=== PATIENT | female | born 1945 | race Caucasian/White ===

== ENCOUNTER 2017-10-18 06:13 | Day surgery (SDC) | payer MEDICARE, OTHER ==
[2017-10-18] MEDS ORDERED: CYCLOPENTOLATE 1% OPHTH DROPS 2 ML ONE (06:30)
[2017-10-18] MEDS ORDERED: KETOROLAC 0.45% OPHTH DROPS ONE (06:30)
[2017-10-18] MEDS ORDERED: PROPARACAINE 0.5% OPHTH DROPS 15 ML ONE (06:30)
[2017-10-18] MEDS ORDERED: PHENYLEPHRINE 2.5% OPHTH 2 ML DROPS ONE (06:30)
[2017-10-18] MEDS ORDERED: KETOROLAC 0.45% OPHTH DROPS LEFTEYE ONE (06:40)
[2017-10-18] MEDS ORDERED: PHENYLEPHRINE 2.5% OPHTH 2 ML DROPS LEFTEYE ONE (06:40)
[2017-10-18] MEDS ORDERED: PROPARACAINE 0.5% OPHTH DROPS 15 ML LEFTEYE ONE ×2 (06:40→07:40)
[2017-10-18] MEDS ORDERED: CYCLOPENTOLATE 1% OPHTH DROPS 2 ML LEFTEYE ONE (06:40)
[2017-10-18] MEDS ORDERED: LACTATED RINGERS 500 ML IV ONE (06:44)
[2017-10-18] MEDS ORDERED: EPINEPHrine 1 MG/ML AMP ONE (07:11)
[2017-10-18] MEDS ORDERED: BRIMONIDINE 0.2% OPHTH DROPS 5 ML ONE (07:12)
[2017-10-18] MEDS ORDERED: TIMOLOL 0.5% OPHTH DROPS ONE (07:12)
[2017-10-18] MEDS ORDERED: TRIAMCIN/MOXIFLOX OPHTHALMIC 0.6 ML VIAL IO ONE (07:12)
[2017-10-18] MEDS ORDERED: BSS/LIDOCAINE/EPINEPHRINE 1 ML SYRINGE ONE (07:13)
[2017-10-18] MEDS ORDERED: VANCOMYCIN OPHTHALMI 8MG/0.8ML 8 MG/0.8 ML SYRINGE IO ONE ×2 (07:13→07:41)
[2017-10-18] MEDS ORDERED: EPINEPHrine 1 MG/ML AMP IR ONE (07:39)
[2017-10-18] MEDS ORDERED: BRIMONIDINE 0.2% OPHTH DROPS 5 ML OPTH ONE (07:39)
[2017-10-18] MEDS ORDERED: TIMOLOL 0.5% OPHTH DROPS OPTH ONE (07:40)
[2017-10-18] MEDS ORDERED: BSS/LIDOCAINE/EPINEPHRINE 1 ML SYRINGE IO ONE ×2 (07:40)
[2017-10-18] MEDS ORDERED: CHONDR SULF/HYALURONATE SYRINGE IO ONE (07:40)
[2017-10-18] MEDS ORDERED: MIDAZOLAM 2 MG/2 ML VIAL IVP ONE (07:41)
[2017-10-18 07:58] VITALS: BP 123/64
--- NOTE | 2017-10-18 10:13 | OPERATIVE REPORT ---
DATE OF SERVICE: 10/18/2017 Physician: William Cason MD PREOPERATIVE DIAGNOSIS: Visually significant cataract, left eye. This was her first cataract surgery. POSTOPERATIVE DIAGNOSIS: Visually significant cataract, left eye. This was her first cataract surgery. NAME OF PROCEDURE: Phacoemulsification with posterior chamber intraocular lens implant, left eye. SURGEON: William Cason MD ANESTHESIA: Monitored anesthesia care. COMPLICATIONS: None. OPERATIVE INDICATIONS: This is a 71-year-old woman with progressive vision loss in the left eye due to 2+ nuclear sclerotic cataract. Best corrected visual acuity was 20/ 25, with glare to 20/60 in the left eye. Indications for surgery were difficulty seeing words on a computer screen, difficulty reading, difficulty seeing words, closed caption or game scores on TV, difficulty seeing street signs, difficulty driving in low light or night, difficulty driving at night because of head lights from other vehicles, difficulty with glare or bright lights in any situation, and difficulty tracking a golf ball. She was consented at length concerning the risks and benefits of cataract surgery, after which she expressed a desire to proceed with surgery. OPERATIVE PROCEDURE: The patient was taken to the OR #3, and placed under monitored anesthesia care. A surgical timeout was conducted confirming the correct patient, correct procedure, and correct surgical site. She was given topical anesthesia, and prepped and draped in the usual sterile fashion. The eye was entered at the 6 and 3 o'clock positions. Intracameral Shugarcaine was injected into the anterior chamber, followed by Viscoat. A continuous-tear curvilinear capsulorrhexis was performed. Nucleus was hydrodissected and phacoemulsified. The cortex was evacuated using automated infusion and aspiration. Provisc was injected in the capsular bag, and a 12.0 diopter intraocular lens inserted in the bag. Approximately 0.8 mL of a mixture of triamcinolone, moxifloxacin and vancomycin was injected subconjunctivally in the superior quadrant for infection and inflammation prophylaxis. I and A was used to evacuate the viscoelastic material. The eye was inflated to physiologic pressure using balanced salt solution, and found to be watertight. The patient was taken from the operating room in good condition, given postop instructions. TD: 10/18/2017 08:02 [facility]
== END 2017-10-18 06:14 | disposition home or self-care (01) ==
LOC: SDS 06:13
PROVIDERS: ATTEND Ophthalmology
PROC: 08RK3JZ Replacement of Left Lens with Synthetic Substitute, Percutaneous Approach (ICD-10-PCS; principal; 2017-10-18 07:30)
DX: H25.12 Age-related nuclear cataract, left eye (principal); I10 Essential (primary) hypertension; E11.9 Type 2 diabetes mellitus without complications; Z87.891 Personal history of nicotine dependence; Z79.84 Long term (current) use of oral hypoglycemic drugs; Z79.899 Other long term (current) drug therapy
CPT/HCPCS: 66984; A9270; J3490; V2632

== ENCOUNTER 2017-11-08 07:11 | Day surgery (SDC) | payer MEDICARE, OTHER ==
[~2017-11-08 07:11] MED LIST: CYCLOPENTOLATE 1% OPHTH DROPS 2 ML ONE; KETOROLAC 0.45% OPHTH DROPS ONE; PHENYLEPHRINE 2.5% OPHTH 2 ML DROPS ONE; PROPARACAINE 0.5% OPHTH DROPS 15 ML ONE
[2017-11-08] MEDS ORDERED: BRIMONIDINE 0.2% OPHTH DROPS 5 ML ONE (07:14)
[2017-11-08] MEDS ORDERED: TIMOLOL 0.5% OPHTH DROPS ONE (07:15)
[2017-11-08] MEDS ORDERED: PROPARACAINE 0.5% OPHTH DROPS 15 ML ONE (07:15)
[2017-11-08] MEDS ORDERED: LACTATED RINGERS 500 ML IV ONE (07:40)
[2017-11-08] MEDS ORDERED: PROPARACAINE 0.5% OPHTH DROPS 15 ML RIGHTEYE ONE ×2 (07:45→08:35)
[2017-11-08] MEDS ORDERED: CYCLOPENTOLATE 1% OPHTH DROPS 2 ML RIGHTEYE ONE (07:45)
[2017-11-08] MEDS ORDERED: PHENYLEPHRINE 2.5% OPHTH 2 ML DROPS RIGHTEYE ONE (07:45)
[2017-11-08] MEDS ORDERED: KETOROLAC 0.45% OPHTH DROPS RIGHTEYE ONE (07:45)
--- NOTE | 2017-11-08 08:05 | ANESTHESIA ---
Pre-Anesthesia VS, & Labs - Diagnosis nuclear sclerotic cataract - Procedure Cataract extraction with intraocular lens Vital Signs: Temp Pulse Resp BP Pulse Ox 36 C L 16 122/69 97 11/08/17 07:24 11/08/17 07:24 11/08/17 07:24 11/08/17 07:24 Height 5 ft 2 in Weight (kg) 75.5 kg - NPO Last Food Intake: 233 - Is Patient ?: No Home Medications and Allergies Home Medications: Ambulatory Orders Medication Instructions Recorded Confirmed Aspirin [Adult Aspirin Regimen] 81 mg PO DAILY 10/17/17 10/17/17 Empagliflozin [Jardiance] 10 mg PO DAILY 10/17/17 10/17/17 Losartan Potassium 25 mg PO DAILY 10/17/17 10/17/17 Pravastatin Sodium [Pravachol] 20 mg PO DAILY 10/17/17 10/17/17 Sitagliptin Phos/Metformin HCl 1 each PO DAILY 10/17/17 10/17/17 [Janumet 50-1,000 mg Tablet] Allergies/Adverse Reactions: Allergies Allergy/AdvReac Type Severity Reaction Status Date / Time No Known Drug Allergies Allergy Verified 10/17/17 11:32 Anes History & Medical History - Anesthetic History Anesthesia Complications: reports: No previous complications Family history of Anesthesia Complications: Denies - Medical History Cardiovascular: reports: Hypertension, High cholesterol Pulmonary: reports: None Gastrointestinal: reports: None Urinary: reports: None Musculoskeletal: reports: Osteoarthritis Endocrine/Autoimmune: reports: Type 2 diabetes Skin: reports: None - Surgical History Orthopedic: Carpal Tunnel surgery Exam General: Alert Dental: Dentures full Upper, Dentures full Lower Mouth Openin Fingerbreadth Mallampati classification: II Thyromental Distance: 4-6 cm Respiratory: Lungs clear Cardiovascular: Regular rate Mental/Cognitive Status: Alert/Oriented X3 Plan Anesthesia Type: MAC Consent for Procedure(s) Verified and Reviewed: No Code Status: Attempt Resuscitation ASA classification: 2-Mild systemic disease Is this case an emergency?: No
[2017-11-08] MEDS ORDERED: MIDAZOLAM 2 MG/2 ML VIAL IVP ONE (08:34)
[2017-11-08] MEDS ORDERED: CHONDR SULF/HYALURONATE SYRINGE IO ONE (08:34)
[2017-11-08] MEDS ORDERED: TIMOLOL 0.5% OPHTH DROPS OPTH ONE (08:34)
[2017-11-08] MEDS ORDERED: EPINEPHrine 1 MG/ML AMP IVP ONE (08:34)
[2017-11-08] MEDS ORDERED: BRIMONIDINE 0.2% OPHTH DROPS 5 ML OPTH ONE (08:34)
[2017-11-08] MEDS ORDERED: TRIAMCIN/MOXIFLOX/VANCO 1 ML VIAL IO ONE (08:35)
[2017-11-08] MEDS ORDERED: BSS/LIDOCAINE/EPINEPHRINE 1 ML SYRINGE IO ONE (08:35)
[2017-11-08 09:04] VITALS: BP 127/70
--- NOTE | 2017-11-08 09:29 | OPERATIVE REPORT ---
DATE OF SERVICE: 11/08/2017 Physician: William Cason MD PREOPERATIVE DIAGNOSIS: Visually significant cataract, right eye. Cataract surgery was performed on the left eye on 10/18/2017. POSTOPERATIVE DIAGNOSIS: Visually significant cataract, right eye. Cataract surgery was performed o n the left eye on 10/18/2017. PROCEDURE: Phacoemulsification posterior chamber intraocular lens implant, right eye. SURGEON: William Cason MD ANESTHESIA: Monitored anesthesia care. COMPLICATIONS: None. OPERATIVE INDICATIONS: This is a 72-year-old woman with progressive vision loss in the right eye due to 2+ nuclear sclerotic cataract. Best corrected visual acuity was 20/20 with glare to 20/40 in the right eye. Indications for surgery were overall decrease in vision, difficulty seeing words on a computer screen , difficulty reading; difficulty seeing words, closed caption or game scores on TV; difficulty seeing street signs, difficulty driving in low light or at night, difficulty driving at night because of he adlights from other vehicles, difficulty with glare or bright lights in any situation, and difficulty tracking and golf ball. She was consented at length concerning risks and benefits of cataract surge ry, after which she expressed a desire to proceed with surgery. OPERATIVE PROCEDURE: The patient was taken to OR #3 and placed under monitored anesthesia care. A s urgical timeout was conducted confirming correct patient, correct procedure, and correct surgical sit e. She was given topical anesthesia, and then prepped and draped in usual sterile fashion. The eye was entered at the 12 and 9 o'clock positions. Intracameral Shugarcaine was injected into the anteri or chamber, followed by Viscoat. A continuous-tear curvilinear capsulorrhexis was performed. Nucleu s was hydrodissected and phacoemulsified. The cortex was evacuated using automated infusion and aspi ration. Provisc was injected in the capsular bag, and a 12.5 diopter intraocular lens inserted into the bag. Approximately 0.8 mL of a mixture of triamcinolone, moxifloxacin, and vancomycin was inject ed subconjunctivally in the superior quadrant for infection and inflammation prophylaxis. I and A wa s used to evacuate the viscoelastic material. The eye was inflated to physiologic pressure using bal anced salt solution and found to be watertight. The patient was taken from the operating room in goo d condition and given postoperative instructions. TD: 11/08/2017 09:04
== END 2017-11-08 07:12 | disposition home or self-care (01) ==
LOC: SDS 07:11
PROVIDERS: ATTEND Ophthalmology
PROC: 08RJ3JZ Replacement of Right Lens with Synthetic Substitute, Percutaneous Approach (ICD-10-PCS; principal; 2017-11-08 08:30)
DX: H25.11 Age-related nuclear cataract, right eye (principal); I10 Essential (primary) hypertension; E11.9 Type 2 diabetes mellitus without complications
CPT/HCPCS: 66984; A9270; J3490; V2632

== ENCOUNTER 2018-04-17 11:21 | Outpatient (CLI) | payer MEDICARE, OTHER | END 2018-04-17 11:22 | disposition critical access hospital (66) | LOC: EMS 11:21 | PROVIDERS: ATTEND Surgery | DX: H54.7 Unspecified visual loss (principal) | CPT/HCPCS: A0425; A0429 ==

== ENCOUNTER 2018-04-17 11:42 | Emergency (ER) | payer MEDICARE, OTHER ==
--- NOTE | 2018-04-17 12:22 | ED Physician Documentation ---
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 The patient is having difficulty expressing herself and reports headache and vision problems the history is limited secondary to the patient's acute condition. Symptoms are severe Review of Systems Unable to obtain: Confused Eyes: reports: Decreased vision Neurologic: reports: Headache PD PAST MEDICAL HISTORY - Past Medical History Cardiovascular: Hypertension, High cholesterol Respiratory: None Endocrine/Autoimmune: Type 2 diabetes GI: None : None HEENT: None Psych: None Musculoskeletal: Osteoarthritis Derm: None - Past Surgical History Ortho: Carpal Tunnel surgery - Present Medications Home Medications: Ambulatory Orders Medication Instructions Recorded Confirmed Empagliflozin [Jardiance] 10 mg PO DAILY 04/17/18 04/17/18 Losartan [Cozaar] 25 mg PO DAILY 04/17/18 04/17/18 Pravastatin [Pravachol] 20 mg PO DAILY 04/17/18 04/17/18 Silver Sulfadiazine [Ssd] 20 gm TP DAILY 04/17/18 04/17/18 Sitagliptin Phos/Metformin HCl 1 each PO DAILY 04/17/18 04/17/18 [Janumet Xr 100-1,000 mg Tablet] - Allergies Allergies/Adverse Reactions: Allergies Allergy/AdvReac Type Severity Reaction Status Date / Time No Known Drug Allergies Allergy Verified 10/17/17 11:32 PD ED PE NORMAL - General General: Other (The patient is alert and confused with an appropriate responses and appears to be acutely distressed) - HEENT HEENT: Atraumatic, PERRL, EOMI - Neck Neck: Supple, no meningeal sign - Cardiac Cardiac: RRR, Strong equal pulses - Respiratory Respiratory: No respiratory distress - Abdomen Abdomen: Soft, Non tender - Derm Derm: Normal color - Extremities Extremities: No deformity, No tenderness to palpate - Neuro Neuro: Other (The patient's alert, confused with inappropriate speech responses and some slight slurred speech. The patient's face is symmetric, the tongue is midline and the patient has normal sensation in the face. The patient has a negative pronator drift in the upper and lower extremities. The patient has equal sound mixer strength. The patient has equal 5/5 strength in the lower extremities.) Results - Vitals Vitals: Vital Signs - 24 hr 04/17/18 11:52 Temperature 36.4 C L Respiratory 20 Rate Blood Pressure 146/78 H O2 Saturation 100 Oxygen O2 Source Room air - EKG (time done) 12:09 Rate: Rate (enter#) Rhythm: NSR Intervals: Normal SD, Prolonged QT, QRS normal Ischemia: Other (Nonspecific ST segments and T waves) - Labs Labs: Laboratory Tests 04/17/18 04/17/18 04/17/18 12:13 12:13 12:13 WBC 6.9 RBC 4.74 Hgb 14.5 Hct 42.6 MCV 89.7 MCH 30.6 MCHC 34.1 RDW 13.2 Plt Count 238 MPV 8.0 Neut # (Auto) 4.4 Lymph # (Auto) 2.0 Carter # (Auto) 0.4 Eos # (Auto) 0.0 Baso # (Auto) 0.0 Absolute Nucleated RBC 0.00 Nucleated RBC % 0.0 PT 10.9 INR 1.0 Sodium 139 Potassium 3.7 Chloride 104 Carbon Dioxide 24 Anion Gap 11.0 BUN 20 Creatinine 0.7 Estimated GFR (MDRD) 82 L Glucose 139 H Calcium 8.8 Total Bilirubin 0.9 AST 23 ALT 20 Alkaline Phosphatase 82 Total Creatine Kinase 65 Troponin I Total Protein 7.8 Albumin 4.2 Globulin 3.6 Albumin/Globulin Ratio 1.2 Lipase 39 TSH Urine Color Urine Clarity Urine pH Ur Specific [place] Urine Protein Urine Glucose (UA) Urine Ketones Urine Occult Blood Urine Nitrite Urine Bilirubin Urine Urobilinogen Ur Leukocyte Esterase Ur Microscopic Review Urine Culture Comments Salicylates < 6.0 Urine Opiates Screen Ur Oxycodone Screen Urine Methadone Screen Ur Propoxyphene Screen Acetaminophen < 10 L Ur Barbiturates Screen Ur Tricyclics Screen Ur Phencyclidine Scrn Ur Amphetamine Screen U Methamphetamines Scrn U Benzodiazepines Scrn Urine Cocaine Screen U Cannabinoids Screen Ethyl Alcohol < 5.0 04/17/18 04/17/18 04/17/18 12:13 12:13 12:29 WBC RBC Hgb Hct MCV MCH MCHC RDW Plt Count MPV Neut # (Auto) Lymph # (Auto) Carter # (Auto) Eos # (Auto) Baso # (Auto) Absolute Nucleated RBC Nucleated RBC % PT INR Sodium Potassium Chloride Carbon Dioxide Anion Gap BUN Creatinine Estimated GFR (MDRD) Glucose Calcium Total Bilirubin AST ALT Alkaline Phosphatase Total Creatine Kinase Troponin I < 0.04 Total Protein Albumin Globulin Albumin/Globulin Ratio Lipase TSH 1.20 Urine Color YELLOW Urine Clarity CLEAR Urine pH 5.5 Ur Specific [place] 1.025 Urine Protein NEGATIVE Urine Glucose (UA) >=1000 H Urine Ketones TRACE Urine Occult Blood TRACE-INTA Urine Nitrite NEGATIVE Urine Bilirubin NEGATIVE Urine Urobilinogen 0.2 (NORMAL) Ur Leukocyte Esterase NEGATIVE Ur Microscopic Review NOT INDICATED Urine Culture Comments NOT INDICATED Salicylates Urine Opiates Screen NEGATIVE Ur Oxycodone Screen NEGATIVE Urine Methadone Screen NEGATIVE Ur Propoxyphene Screen NEGATIVE Acetaminophen Ur Barbiturates Screen NEGATIVE Ur Tricyclics Screen NEGATIVE Ur Phencyclidine Scrn NEGATIVE Ur Amphetamine Screen NEGATIVE U Methamphetamines Scrn NEGATIVE U Benzodiazepines Scrn NEGATIVE Urine Cocaine Screen NEGATIVE U Cannabinoids Screen NEGATIVE Ethyl Alcohol - Rads (name of study) CT Head Radiology: Final report received, Discussed with radmariza, See rad report PD MEDICAL DECISION MAKING - ED course ED course: 12:05 PM After the patient fom a CT scan I independently reviewed the images and saw the large intracranial hemorrhage with mass-effect and the transfer process to [facility] [place] I talked With the neurosurgeon Dr. Sandoval Who agrees with the plan for transfer and the plan to start nicardipine The case was discussed with the neuro basket hand weaver who agrees with the plan for transfer to the ICU and recommends starting Keppra The patient has started vomiting in the emergency department, the patient's symptoms are being treated with Zofran. The findings and plan were discussed with the patient's family who understand and agree to the plan. The patient's son is her power of environmental officer. The patient's blood pressure before starting nicardipine is below 140 systolic and currently the nicardipine will be held until the patient's blood pressure rises The patient will require emergent transport by air lift - Critical Care Time(min): 30 Time Includes: Direct patient care, Reassess patient, Document care, Coordinate care, Medical consult, Family consult for mar Data interpretation: Labs, CXR Procedures excluded from critical care time: EKG Departure - Departure Disposition: 02 Transfer Acute Care Hosp Clinical Impression: Acute intracranial hemorrhage Condition: Critical
[2018-04-17 12:26] LABS: BASOPHILS % (AUTO) 0.3 %; EOSINOPHILS % (AUTO) 0.6 %; HGB - HEMOGLOBIN 14.5 g/dL (12.0-16.0); LYMPHOCYTES % (AUTO) 29.1 %; MEAN CORPUSCULAR HEMOGLOBIN 30.6 pg (27.0-31.0); MEAN CORPUSCULAR HGB CONC 34.1 g/dL (32.0-36.0); MEAN CORPUSCULAR VOLUME 89.7 fL (81.0-99.0); MONOCYTES # (AUTO) 0.4 10^3/uL (0.0-1.0); MONOCYTES % (AUTO) 6.3 %; NEUTROPHILS # (AUTO) 4.4 10^3/uL (1.5-6.6); NEUTROPHILS % (AUTO) 63.7 %; PLT - PLATELET COUNT 238 10^3/uL (130-450); RED BLOOD COUNT 4.74 10^6/uL (4.20-5.40); RED CELL DISTRIBUTION WIDTH 13.2 % (12.0-15.0); WHITE BLOOD COUNT 6.9 x10^3/uL (4.8-10.8)
[2018-04-17 12:35] LABS: MUDS CUTOFF CONCENTRATIONS CUTOFF CONC BELOW:
[2018-04-17] MEDS ORDERED: niCARdipine 20 MG/200 ML 20 MG/200 ML BAG IV STA (12:36)
[2018-04-17 12:37] LABS: PT - PROTHROMBIN TIME 10.9 secs (9.9-12.6)
[2018-04-17 12:37] LABS: BILIRUBIN,URINE NEGATIVE (NEGATIVE); GLUCOSE, URINE (UA) >=1000 mg/dL (NEGATIVE); KETONES,URINE (UA) TRACE mg/dL (NEGATIVE); LEUKOCYTE ESTERASE, URINE NEGATIVE (NEGATIVE); NITRITE,URINE NEGATIVE (NEGATIVE); OCCULT BLOOD,URINE TRACE-INTA (NEGATIVE); PH,URINE 5.5 PH (5.0-7.5); PROTEIN,URINE NEGATIVE (NEGATIVE); UROBILINOGEN,URINE 0.2 (NORMAL) E.U./dL (NORMAL)
[2018-04-17 12:38] LABS: CLARITY,URINE CLEAR (CLEAR)
[2018-04-17 12:38] LABS: ACETAMINOPHEN < 10 ug/mL (10-30); ALBUMIN 4.2 g/dL (3.2-5.5); ALBUMIN/GLOBULIN RATIO 1.2 (1.0-2.2); ALKALINE PHOSPHATASE 82 IU/L (42-121); ALT ALANINE AMINOTRANSFERASE 20 IU/L (10-60); AST ASPARTATE AMINOTRANSFERASE 23 IU/L (10-42); BILIRUBIN,TOTAL 0.9 mg/dL (0.2-1.0); BUN - BLOOD UREA NITROGEN 20 mg/dL (6-20); CALCIUM 8.8 mg/dL (8.5-10.3); CARBON DIOXIDE - CO2 24 mmol/L (21-32); CHLORIDE 104 mmol/L (101-111); CK- CREATINE KINASE 65 IU/L (22-269); CREATININE 0.7 mg/dL (0.4-1.0); GFR - MDRD 82 (>89); GLUCOSE 139 mg/dL (70-100); LIPASE 39 U/L (22-51); SALICYLATE < 6.0 mg/dL; SODIUM 139 mmol/L (135-145); TOTAL PROTEIN 7.8 g/dL (6.7-8.2)
[2018-04-17] MEDS ORDERED: ONDANSETRON 4 MG/2 ML VIAL IVP STA (12:43)
--- NOTE | 2018-04-17 12:45 | CT Report ---
Reason: VICION CHANGES, SPEECH, CONFUSION. Procedure Date: 04/17/2018 Accession Number: [id number] / [id number] Procedure: CT - Head W/O Stroke Protocol CPT Code: FULL RESULT: EXAM: CT HEAD EXAM DATE: 04/17/2018 11:55 AM. CLINICAL HISTORY: New onset confusion and vision changes. COMPARISON: None. TECHNIQUE: Multiaxial CT images were obtained from the foramen magnum to the vertex. Reformats: Sagittal and coronal. IV contrast: None. In accordance with CT protocol optimization, one or more of the following dose reduction techniques were utilized for this exam: automated exposure control, adjustment of mA and/or KV based on patient size, or use of iterative reconstructive technique. FINDINGS: Parenchyma: There is a prominent parenchymal hemorrhage involving the left mid and posterior temporal lobe with extent into the left parietal lobe with the largest components measuring up to 6.5 x 3.6 x 4.3 cm. There is adjacent edema. There is subarachnoid extent. There is extension to the adjacent left temporal and left parietal subdural space with a thickness measuring up to 4 mm in addition, there is intraventricular extent in the left lateral ventricle causing 3-4 mm of [id number] midline shift. Adjacent mass-effect upon the parenchyma noted. Extraaxial Spaces: Extra-axial extent of the parenchymal hemorrhages noted. There is left temporal and left parietal as well as left occipital extent of hemorrhage with a thickness measuring up to 4 mm's. Ventricles: Mass-effect upon the left lateral ventricle with intraventricular extent of hemorrhage into the left lateral ventricle. Sinuses and Orbits: Imaged paranasal sinuses, orbits, and mastoids show no significant abnormality. Bones: No evidence of fracture or calvarial defect. Other: Changes are seen from bilateral lens surgery. Vascular calcifications. IMPRESSION: 1. Extensive left temporal and left parietal parenchymal hemorrhage with associated mass-effect and edema. Intraventricular and subarachnoid extent as well as subdural extent is seen, as described. RADIA The above findings were discussed with Molina Hanna by Dr. Von Up at 12:33 hrs on 04/17/18.
[2018-04-17 12:47] LABS: AMPHETAMINE SCREEN,URINE NEGATIVE (NEGATIVE); BENZODIAZEPINES SCREEN, URINE NEGATIVE (NEGATIVE); COCAINE SCREEN URINE NEGATIVE (NEGATIVE); METHADONE SCREEN, URINE NEGATIVE (NEGATIVE); METHAMPHETAMINES SCREEN, URINE NEGATIVE (NEGATIVE); OPIATE SCREEN, URINE NEGATIVE (NEGATIVE); OXYCODONE SCREEN, URINE NEGATIVE (NEGATIVE); PROPOXYPHENE SCREEN, URINE NEGATIVE (NEGATIVE); TRICYCLIC ANTIDEPRESSANT,URINE NEGATIVE (NEGATIVE)
[2018-04-17] MEDS ORDERED: levETIRAcetam INJ 1,000 MG in SODIUM CHLORIDE 0.9% 100ML 100 ML IV STA (12:47)
[2018-04-17 13:48] VITALS: BP 111/57
== END 2018-04-17 14:03 | disposition short-term general hospital (02) ==
LOC: EDUNIT# → EDBD → ED 11:42
DX: I62.9 Nontraumatic intracranial hemorrhage, unspecified (principal); E11.9 Type 2 diabetes mellitus without complications; I10 Essential (primary) hypertension; E78.00 Pure hypercholesterolemia, unspecified
CPT/HCPCS: 36415; 51702; 70450; 80053; 80306; 80307; 80320; 80329; 81001; 81003; 82550; 83690; 84443; 84484; 85025; 85610; 87086; 93005; 96374; 96375; 99284; 99285; 99291

== ENCOUNTER 2018-04-25 08:00 | Outpatient (CLI) | payer MEDICARE, OTHER ==
[2018-04-26 00:53] LABS: BASOPHILS # (AUTO) 0.1 10^3/uL (0.0-0.1); BASOPHILS % (AUTO) 0.5 %; EOSINOPHILS # (AUTO) 0.1 10^3/uL (0.0-0.7); EOSINOPHILS % (AUTO) 0.6 %; HGB - HEMOGLOBIN 13.8 g/dL (12.0-16.0); LYMPHOCYTES # (AUTO) 2.4 10^3/uL (1.5-3.5); LYMPHOCYTES % (AUTO) 24.7 %; MEAN CORPUSCULAR HEMOGLOBIN 30.8 pg (27.0-31.0); MEAN CORPUSCULAR HGB CONC 34.1 g/dL (32.0-36.0); MEAN CORPUSCULAR VOLUME 90.4 fL (81.0-99.0); MEAN PLATELET VOLUME 8.5 fL (7.9-10.8); MONOCYTES # (AUTO) 0.8 10^3/uL (0.0-1.0); MONOCYTES % (AUTO) 8.2 %; NEUTROPHILS # (AUTO) 6.3 10^3/uL (1.5-6.6); PLT - PLATELET COUNT 254 10^3/uL (130-450); RED BLOOD COUNT 4.49 10^6/uL (4.20-5.40); RED CELL DISTRIBUTION WIDTH 13.5 % (12.0-15.0); WHITE BLOOD COUNT 9.5 x10^3/uL (4.8-10.8)
[2018-04-26 00:59] LABS: BUN - BLOOD UREA NITROGEN 10 mg/dL (6-20); CARBON DIOXIDE - CO2 27 mmol/L (21-32); CHLORIDE 100 mmol/L (101-111); CHOL/HDL RATIO 2.7 (<4.4); CHOLESTEROL 108 mg/dL; CREATININE 0.6 mg/dL (0.4-1.0); GFR - MDRD 98 (>89); GLUCOSE 134 mg/dL (70-100); HDL CHOLESTEROL 40 mg/dL; LDL CHOLESTEROL,CALCULATED 24 mg/dL; LDL/HDL RATIO 0.6 (<4.4); SODIUM 136 mmol/L (135-145); VLDL CHOLESTEROL 44 mg/dL
[2018-04-26 01:16] LABS: HB2 TOTAL 14.5 g/dL; HEMOGLOBIN A1C 0.61 g/dL
== END 2018-04-25 23:59 ==
LOC: LAB.R 08:00
DX: S06.360D Traumatic hemorrhage of cerebrum, unspecified, without loss of consciousness, subsequent encounter (principal); E78.5 Hyperlipidemia, unspecified; E11.9 Type 2 diabetes mellitus without complications; G40.89 Other seizures
CPT/HCPCS: 80048; 80061; 83036; 83721; 85025

== ENCOUNTER 2018-06-10 08:56 | Outpatient (CLI) | payer MEDICARE, OTHER ==
[2018-06-10 13:27] LABS: HGB - HEMOGLOBIN 14.3 g/dL (12.0-16.0); MEAN CORPUSCULAR HEMOGLOBIN 30.4 pg (27.0-31.0); MEAN CORPUSCULAR HGB CONC 33.4 g/dL (32.0-36.0); MEAN CORPUSCULAR VOLUME 90.9 fL (81.0-99.0); MEAN PLATELET VOLUME 8.5 fL (7.9-10.8); RED BLOOD COUNT 4.7 10^6/uL (4.20-5.40); RED CELL DISTRIBUTION WIDTH 14.1 % (12.0-15.0)
[2018-06-10 13:30] LABS: ALBUMIN/GLOBULIN RATIO 1.1 (1.0-2.2); ALKALINE PHOSPHATASE 79 IU/L (42-121); ALT ALANINE AMINOTRANSFERASE 21 IU/L (10-60); AST ASPARTATE AMINOTRANSFERASE 18 IU/L (10-42); BILIRUBIN,TOTAL 0.5 mg/dL (0.2-1.0); BUN - BLOOD UREA NITROGEN 15 mg/dL (6-20); CALCIUM 9.3 mg/dL (8.5-10.3); CARBON DIOXIDE - CO2 26 mmol/L (21-32); CHLORIDE 107 mmol/L (101-111); CHOL/HDL RATIO 3.5 (<4.4); CHOLESTEROL 155 mg/dL; CREATININE 0.6 mg/dL (0.4-1.0); GFR - MDRD 98 (>89); GLUCOSE 111 mg/dL (70-100); HDL CHOLESTEROL 44 mg/dL; LDL CHOLESTEROL,CALCULATED 74 mg/dL; LDL/HDL RATIO 1.7 (<4.4); SODIUM 142 mmol/L (135-145); TOTAL PROTEIN 7.6 g/dL (6.7-8.2); VLDL CHOLESTEROL 37 mg/dL
== END 2018-06-10 23:59 ==
LOC: LAB.WCP 08:56
PROVIDERS: ATTEND Family Medicine
DX: E78.00 Pure hypercholesterolemia, unspecified (principal); I10 Essential (primary) hypertension; E11.9 Type 2 diabetes mellitus without complications; I61.5 Nontraumatic intracerebral hemorrhage, intraventricular; G40.89 Other seizures; Z79.899 Other long term (current) drug therapy
CPT/HCPCS: 36415; 80053; 80061; 80177; 83721; 85027

== ENCOUNTER 2018-06-27 08:20 | Outpatient (CLI) | payer MEDICARE, OTHER ==
--- NOTE | 2018-06-27 13:43 | MRI Report ---
Reason: NONTRAUMATIC INTRACEREBRAL HEMORRHAGE, INTRAVENTRI Procedure Date: 06/27/2018 Accession Number: [id number] / [id number] Procedure: MRI - Brain W/O CPT Code: FULL RESULT: EXAM: MRI BRAIN WITHOUT CONTRAST EXAM DATE: 06/27/2018 09:22 AM. CLINICAL HISTORY: Nontraumatic intracerebral hemorrhage, intraventricular. COMPARISON: CT HEAD WITHOUT CONTRA 04/19/2018 9:35 AM. MR BRAIN WITHOUT AND WITH CONTRAST 04/18/2018 4:35 AM. TECHNIQUE: Multiplanar, multisequence T1-weighted and fluid-sensitive MR sequences of the brain were performed. Sequences optimized for routine evaluation. Other: None. IV Contrast: None. FINDINGS: Brain Volume: Normal for age. Parenchyma/Dura: There is expected evolution of parenchymal signal abnormality from previously noted parenchymal hematoma in the posterolateral left temporal and occipital lobes. There is heterogeneous blood breakdown product signal abnormality. Areas of increased and decreased T1 and T2 signal are present. Areas of magnetic susceptibility as well as restricted diffusion are seen. Interval mild volume loss is seen. Progression of adjacent white matter vasogenic edema is seen posteromedial and superior to the hematoma within the occipital lobe. Near-complete resolution of previously noted mass effect is seen. Mild residual mass effect on the posterolateral aspect of the atrium and occipital horn of the left lateral ventricle remains. Mild scattered foci of T2/FLAIR bright white matter signal is seen throughout the cerebral hemispheres. Several faint foci of T2 shine-through is seen involving these foci of white matter signal in the high convexities bilaterally. No new area of intracranial hemorrhage is appreciated. Ventricles/Cisterns: Mass effect on the posterior left lateral ventricle is seen. No hydrocephalus is noted. Resolution of previously noted intraventricular hemorrhage is seen. Resolution of previously noted left lateral and posterior subdural hematoma is seen. No abnormal extra-axial fluid collection or hemorrhage. Orbits: Unremarkable. Note is made of bilateral lens removal. Sella Turcica: Note is made of a partially empty sella turcica. A thin rind of pituitary tissue is seen in the floor of the sella turcica. The cavernous sinuses and suprasellar cistern are unremarkable. IAC: Symmetric and unremarkable. Vasculature: Normal signal flow void is seen in the major arterial structures at the skull base. Sinuses: Mild circumferential polypoid mucosal thickening is seen in the right maxillary antrum. The mastoid air cells are clear. Bones: No focal pathologic appearing marrow signal changes. Other: None. IMPRESSION: 1.Expected evolution and involution of parenchymal hematoma in the posterolateral left temporal and occipital lobes. Decrease in localized mass effect is appreciated. 2. Increase in vasogenic edema medial and superior to the posterior aspect of the hematoma within the left occipital lobe. No associated restricted diffusion is seen in this region. 3. Mild scattered foci of T2/FLAIR bright white matter signal is seen in the cerebral hemispheres. This is nonspecific. This can be seen secondary to small vessel ischemic change. RADIA
== END 2018-06-27 08:21 | disposition home or self-care (01) ==
LOC: DI 08:20
PROVIDERS: ATTEND Family Medicine
DX: I61.5 Nontraumatic intracerebral hemorrhage, intraventricular (principal); G40.89 Other seizures
CPT/HCPCS: 70551

== ENCOUNTER 2018-07-25 08:15 | Outpatient (CLI) | payer MEDICARE, OTHER | END 2018-07-25 08:16 | disposition home or self-care (01) | LOC: DI 08:15 | PROVIDERS: ATTEND Family Medicine | DX: Z12.31 Encounter for screening mammogram for malignant neoplasm of breast (principal) | CPT/HCPCS: 77063; 77067 ==

== ENCOUNTER 2018-08-15 09:22 | Outpatient (CLI) | payer MEDICARE, OTHER ==
--- NOTE | 2018-08-15 11:53 | Mammography Report ---
Reason: ABNORMAL SCREENING Procedure Date: 08/15/2018 Accession Number: [id number] / [id number] Procedure: CLIFF - Diag Special Views Dig LT CPT Code: FULL RESULT: EXAM: Diag Special Views Dig LT, Breast Unilateral Limited, Breast Unilateral Limited DATE: 08/15/2018 9:59 AM CLINICAL HISTORY: TECHNIQUE: (B) - Bilateral real-time ultrasound performed with a high-frequency linear transducer. Left coned magnified CC and ML views. Full field 90 degree lateral. COMPARISON: 07/25/2018 PARENCHYMAL PATTERN: (A) - The breasts demonstrate scattered fibroglandular densities bilaterally. FINDINGS: Left breast: Additional views reconfirm a 4 mm sharply circumscribed oval mass posterior upper outer left breast, representing finding recalled from screening. Interval enlargement of an 18 mm dermal-based mass posterior 9:00 breast. Further history from the patient: Increasing size in pain of medial dermal-based mass with one episode of whitish discharge from the mass. No suspicious calcifications or areas of distortion. Left breast ultrasound: Targeted ultrasound is performed with a high-frequency linear transducer by both the technologist and the radiologist. At 2:00, 8 cm from the nipple a sharply circumscribed anechoic 4 mm simple cyst is noted, corresponding to finding recalled from screening. At 9:00, 10 cm from the nipple, a raised skin lesion is visible associated with redness. There is a prominent skin pore over the apex. By ultrasound exam, there is a dermal based complicated avascular cyst with broad abutment of the dermis and demonstrable dermal tail, consistent with sebaceous cyst. There is increased flow to the periphery consistent with associated infection and/or inflammation. Right breast ultrasound: Targeted ultrasound is performed with a high-frequency linear transducer. In the axillary tail 10:00 8 cm from the nipple, a normal morphology lymph nodes is noted corresponding to the mammographic finding recalled from screening. IMPRESSION: Left breast: 1. Finding recalled from screening in the upper outer breast corresponds to a 4 mm simple cyst. Benign. BI-RADS Category 2. Recommend annual screening mammography. 2. Enlarging clinical finding medial left breast corresponds to a sebaceous cyst likely with associated infection or inflammation. Benign. Clinical follow-up and/or management with antibiotics is recommended; findings discussed with the patient and patient's caregiver. Right breast: Finding recalled from screening upper outer breast consistent with normal lymph node. Negative. BI-RADS Category 1. Recommend annual screening mammography. RECOMMENDATION: (ANNUAL) - Recommend routine annual screening mammography. BI-RADS CATEGORY: (2) - Benign Findings. STANDARD QUALIFYING STATEMENTS: 1. This examination was not reviewed with the aid of Computer-Aided Detection (CAD). 2. A negative or benign imaging report should not preclude biopsy if clinically suspicious findings are present. 3. Dense breasts may obscure an underlying neoplasm. 4. This examination was reviewed with the aid of 3D breast imaging (tomosynthesis).
== END 2018-08-15 09:23 | disposition home or self-care (01) ==
LOC: DI 09:22
PROVIDERS: ATTEND Family Medicine
DX: N60.02 Solitary cyst of left breast (principal); R92.8 Other abnormal and inconclusive findings on diagnostic imaging of breast
CPT/HCPCS: 76642

== ENCOUNTER 2021-04-11 14:29 | Outpatient (CLI) | payer MEDICARE, OTHER ==
--- NOTE | 2021-04-12 17:26 | Mammography Report ---
BILATERAL DIGITAL SCREENING MAMMOGRAM 3D/2D: 04/11/2021 CLINICAL: Routine screening. Comparison is made to exams dated: 08/15/2018 ultrasound, 08/15/2018 ultrasound, 08/15/2018 mammogram, and 07/25/2018 mammogram - [facility]. There are scattered fibroglandular elements in both breasts. No significant masses, calcifications, or other findings are seen in either breast. There has been no significant interval change. IMPRESSION: NEGATIVE There is no mammographic evidence of malignancy. A 1 year screening mammogram is recommended. This exam was interpreted at Station ID: [id number]. NOTE: For mammograms, a report in lay terms will be sent to the patient. Approximately 15% of breast malignancies will not be visualized mammographically. In the management of a palpable breast mass, a negative mammogram must not discourage biopsy of a clinically suspicious lesion. Electronically Signed By: Piotr spence/rachel:04/11/2021 16:13:03 ACR BI-RADS Category 1: Negative [id number] PARENCHYMAL PATTERN: (A) - The breast(s) demonstrate(s) scattered fibroglandular densities. BI-RADS CATEGORY: (1) - 1 RECOMMENDATION: (ANNUAL) - Recommend routine annual screening mammography. [id number] 1 year screening LATERALITY: (B)
== END 2021-04-11 14:30 | disposition home or self-care (01) ==
LOC: DI.N 14:29
PROVIDERS: ATTEND Family Medicine
DX: Z12.31 Encounter for screening mammogram for malignant neoplasm of breast (principal)

== ENCOUNTER 2022-05-01 12:51 | Outpatient (CLI) | payer MEDICARE, OTHER ==
--- NOTE | 2022-05-02 11:41 | Mammography Report ---
BILATERAL DIGITAL SCREENING MAMMOGRAM 3D/2D: 05/01/2022 CLINICAL: Routine screening. Comparison is made to exams dated: 04/11/2021 mammogram, 08/15/2018 ultrasound, 08/15/2018 ultrasound, 08/15/2018 mammogram, and 07/25/2018 mammogram - [facility]. There are scattered areas of fibroglandular density in both breasts (category b / 25%-50% glandular t issue). There is a benign focal asymmetry in the left breast. There also are benign calcifications in both b reasts. No significant masses, calcifications, or other findings are seen in either breast. There has been no significant interval change. IMPRESSION: BENIGN There is no mammographic evidence of malignancy. A 1 year screening mammogram is recommended. Based on the Tyrer Cuzick model (a risk assessment model) the patients lifetime risk is 3.6% and her 10 year risk is 0.0%. According to the ACR, ACS, and NCCN guidelines, an annual breast MRI exam prabhakar g with mammogram is recommended if the patients lifetime risk is 20% or greater. This exam was interpreted at Station ID: [id number]. NOTE: For mammograms, a report in lay terms will be sent to the patient. Approximately 15% of breast malignancies will not be visualized mammographically. In the management of a palpable breast mass, a negative mammogram must not discourage biopsy of a clinically suspicious lesion. Electronically Signed By: Mayito Chavez M.D. acr/tamrarad:05/01/2022 15:30:21 ACR BI-RADS Category 2: Benign Finding(s) 3342F PARENCHYMAL PATTERN: (A) - The breast(s) demonstrate(s) scattered fibroglandular densities. BI-RADS CATEGORY: (2) - 2 RECOMMENDATION: (ANNUAL) - Recommend routine annual screening mammography. [id number] 1 year screening LATERALITY: (B)
== END 2022-05-01 12:52 | disposition home or self-care (01) ==
LOC: DI.N 12:51
PROVIDERS: ATTEND Family Medicine
DX: Z12.31 Encounter for screening mammogram for malignant neoplasm of breast (principal)

== ENCOUNTER 2022-07-02 18:42 | Emergency (ER) | payer MEDICARE, OTHER ==
--- OUTSIDE RECORDS SUMMARY | 2022-07-02 19:08 | EXTERNAL MEDICAL SUMMARY RPT | Continuity of Care Document ---
:1945 Author Organization [facility] Address [address] [place] [address] Phone Allergies No information. Encounters No information. Functional Status No information. Immunizations No information. Medications No information. Problems date description facility 2022-04-28 12:45 Unilateral primary osteoarthritis, [facility] Procedures No information. Results/Labs test date author facility value unit interpret ation Result panel 1 (unknown) (no (unknown) (unknown) (no value) (units (unk nown) date) unknown) (unknown) (no (unknown) (unknown) [id number] (units (unkno wn) date) unknown) (unknown) (no (unknown) (unknown) 04/28/22 (units (unkno wn) date) unknown) (unknown) (no (unknown) (unknown) 1. Horizontal (units ( unknown) date) oblique tear of unknown) the body of the lateral meniscus extending to the (unknown) (no (unknown) (unknown) [address] (units (unknown) date) unknown) (unknown) (no (unknown) (unknown) 2. Grade 3 (units (unk nown) date) chondromalacia is unknown) seen in the weight-bearing portion of the lateral (unknown) (no (unknown) (unknown) 3. No acute (units (un known) date) trabecular bone unknown) injury. Cruciate and collateral ligaments are (unknown) (no (unknown) (unknown) 4. Patella lindsay. (units (unknown) date) Moderate edema at unknown) the superolateral aspect of Hoffa's fat pad (unknown) (no (unknown) (unknown) 5. Small joint (units (unknown) date) effusion. Small unknown) medial popliteal cyst. (unknown) (no (unknown) (unknown) Accession Number: (units (unknown) date) [id number] unknown) (unknown) (no (unknown) (unknown) Age/Sex: 76 / F (units (unknown) date) Date of Service: unknown) (unknown) (no (unknown) (unknown) [place], [place] (units ( unknown) date) [id number] unknown) (unknown) (no (unknown) (unknown) Anterior Cruciate (units (unknown) date) Ligament: Intact. unknown) (unknown) (no (unknown) (unknown) Anterior (units (unkno wn) date) Structures: unknown) Patella lindsay. The distal quadriceps tendon is intact. (unknown) (no (unknown) (unknown) Approved by: (units (u nknown) date) sarah Monterroso M.D. on 04/28/2022 at 15:11 (unknown) (no (unknown) (unknown) Bones: No acute (units (unknown) date) trabecular bone unknown) injury or fracture. (unknown) (no (unknown) (unknown) COMPARISON: (units (un known) date) [facility], unknown) CR, XR KNEE RT 3V, 01/04/2022, 13:03. (unknown) (no (unknown) (unknown) : 1945 (units (unknown) date) Acct:[id number] unknown) (unknown) (no (unknown) (unknown) FINDINGS: (units (unkn own) date) unknown) (unknown) (no (unknown) (unknown) IMPRESSION: (units (un known) date) unknown) (unknown) (no (unknown) (unknown) INDICATIONS: (units (u nknown) date) Unilateral primary unknown) osteoarthritis, right knee (unknown) (no (unknown) (unknown) Iliotibial band (units (unknown) date) appears normal. unknown) (unknown) (no (unknown) (unknown) Image quality: (units (unknown) date) Excellent. unknown) (unknown) (no (unknown) (unknown) [facility] (units (unknown) date) unknown) (unknown) (no (unknown) (unknown) Lateral (units (unkno wn) date) Collateral unknown) Ligament: Intact. (unknown) (no (unknown) (unknown) Lateral (units (unkno wn) date) Femorotibial unknown) Cartilage: High-grade partial-thickness cartilage (unknown) (no (unknown) (unknown) Lateral Meniscus: (units (unknown) date) There is unknown) horizontal oblique tearing of the body of the (unknown) (no (unknown) (unknown) Loc: MRI (units (unkno wn) date) unknown) (unknown) (no (unknown) (unknown) Magnetic (units (unkno wn) date) Resonance Report unknown) (unknown) (no (unknown) (unknown) Medial Collateral (units (unknown) date) Ligament: Intact. unknown) (unknown) (no (unknown) (unknown) Medial (units (unkno wn) date) Femorotibial unknown) Cartilage: Mild partial-thickness cartilage thinning is (unknown) (no (unknown) (unknown) Medial Meniscus: (units (unknown) date) Intact. unknown) (unknown) (no (unknown) (unknown) Medial and (units (unk nown) date) Lateral Tendons: unknown) The semimembranosus tendon insertions and (unknown) (no (unknown) (unknown) No abnormal (units (un known) date) bursal fluid. The unknown) long and short heads of the biceps femoris (unknown) (no (unknown) (unknown) No patellar (units (un known) date) unknown) (unknown) (no (unknown) (unknown) Noncontrast (units (un known) date) sagittal PD fast unknown) spin echo and T2 fast spin echo with fat (unknown) (no (unknown) (unknown) Ordering (units (unkno wn) date) Provider: unknown) Benita Lopes MD (unknown) (no (unknown) (unknown) PROCEDURE: MR (units ( unknown) date) KNEE RT WO CON unknown) (unknown) (no (unknown) (unknown) Patellofemoral (units (unknown) date) Cartilage: unknown) Moderate partial-thickness cartilage irregularity is (unknown) (no (unknown) (unknown) Patient: (units (unkno wn) date) Salvador,Adriana I unknown) MR#: [id number] (unknown) (no (unknown) (unknown) Posterior (units (unkn own) date) Cruciate Ligament: unknown) Intact. (unknown) (no (unknown) (unknown) Procedure: MR (units ( unknown) date) knee RT wo con unknown) (unknown) (no (unknown) (unknown) Signed (units (unkno wn) date) unknown) (unknown) (no (unknown) (unknown) Soft Tissues: (units ( unknown) date) There is a small unknown) joint effusion. A small medial popliteal cyst (unknown) (no (unknown) (unknown) TECHNIQUE: (units (unk nown) date) unknown) (unknown) (no (unknown) (unknown) There is trace (units (unknown) date) fluid tracking unknown) along the popliteus tendon sheath. The (unknown) (no (unknown) (unknown) and mild grade 2 (units (unknown) date) cartilage thinning unknown) in the medial compartment. (unknown) (no (unknown) (unknown) appear normal. (units (unknown) date) unknown) (unknown) (no (unknown) (unknown) can be (units (unkno wn) date) unknown) (unknown) (no (unknown) (unknown) cartilage loss at (units (unknown) date) the trochlear unknown) groove. (unknown) (no (unknown) (unknown) compartment (units (un known) date) unknown) (unknown) (no (unknown) (unknown) corner injury. (units (unknown) date) unknown) (unknown) (no (unknown) (unknown) echo with (units (unkn own) date) unknown) (unknown) (no (unknown) (unknown) edge (units (unkno wn) date) unknown) (unknown) (no (unknown) (unknown) fat saturation, (units (unknown) date) and axial PD fast unknown) spin echo with fat saturation through the (unknown) (no (unknown) (unknown) femoral trochlear (units (unknown) date) dysplasia or unknown) ventral trochlear prominence. (unknown) (no (unknown) (unknown) femorotibial (units (u nknown) date) compartment. There unknown) is grade 2-3 chondromalacia in the anterior (unknown) (no (unknown) (unknown) inner (units (unkno wn) date) unknown) (unknown) (no (unknown) (unknown) intact. The (units (un known) date) popliteus tendon unknown) appears intact. No signs of posterolateral (unknown) (no (unknown) (unknown) intact. (units (unkno wn) date) unknown) (unknown) (no (unknown) (unknown) irregularity is (units (unknown) date) unknown) (unknown) (no (unknown) (unknown) is seen. (units (unkno wn) date) unknown) (unknown) (no (unknown) (unknown) junction appear (units (unknown) date) intact. Visualized unknown) portions of the pes anserinus tendons (unknown) (no (unknown) (unknown) knee. (units (unkno wn) date) unknown) (unknown) (no (unknown) (unknown) lateral (units (unkno wn) date) unknown) (unknown) (no (unknown) (unknown) margin. A small (units (unknown) date) lateral unknown) parameniscal cyst measures up to 9 x 3 x 8 mm. (unknown) (no (unknown) (unknown) marginal (units (unkno wn) date) unknown) (unknown) (no (unknown) (unknown) meniscocapsular (units (unknown) date) unknown) (unknown) (no (unknown) (unknown) meniscus (units (unkno wn) date) extending to the unknown) inner third of the tibial articular surface and free (unknown) (no (unknown) (unknown) musculature (units (un known) date) unknown) (unknown) (no (unknown) (unknown) osteophyte (units (unk nown) date) formation. unknown) (unknown) (no (unknown) (unknown) pad. No (units (unkno wn) date) unknown) (unknown) (no (unknown) (unknown) parameniscal cyst (units (unknown) date) is noted. unknown) (unknown) (no (unknown) (unknown) sagittal 3-D (units (u nknown) date) FLASH with fat unknown) saturation; coronal T1 spin echo and PD fast spin (unknown) (no (unknown) (unknown) saturation, (units (un known) date) unknown) (unknown) (no (unknown) (unknown) seen at (units (unkno wn) date) unknown) (unknown) (no (unknown) (unknown) seen in the (units (un known) date) setting of lateral unknown) femoral condyle-patellar tendon friction (unknown) (no (unknown) (unknown) seen in the (units (un known) date) weight-bearing unknown) portion of the lateral femorotibial compartment with (unknown) (no (unknown) (unknown) seen in the (units (un known) date) unknown) (unknown) (no (unknown) (unknown) subluxation. (units (u nknown) date) Moderate edema is unknown) seen at the superolateral aspect of Hoffa's fat (unknown) (no (unknown) (unknown) surrounding the (units (unknown) date) knee is normal in unknown) bulk. (unknown) (no (unknown) (unknown) syndrome. (units (unkn own) date) unknown) (unknown) (no (unknown) (unknown) tendon appear (units ( unknown) date) unknown) (unknown) (no (unknown) (unknown) the median ridge (units (unknown) date) of the patella. unknown) There is at least high-grade partial (unknown) (no (unknown) (unknown) thickness (units (unkn own) date) unknown) (unknown) (no (unknown) (unknown) third of the (units (u nknown) date) tibial articular unknown) surface and the free edge margin. A small 9 mm (unknown) (no (unknown) (unknown) weight-bearing (units (unknown) date) portion of the unknown) medial femorotibial compartment. Social History No information. Vital Signs No information.
[2022-07-02] MEDS ORDERED: SODIUM CHLORIDE 0.9% 500 ML IV STA (19:40)
--- NOTE | 2022-07-02 19:50 | ED Physician Documentation ---
PD HPI HEADACHE - Stated complaint Stated Complaint: BLURRY VISION/MEMORY LOSS - Chief complaint Chief Complaint: Heent - History obtained from History obtained from: Patient, Family - Additional information Additional information: Patient is a 76-year-old female with a history of an intracranial hemorrhage presenting for evaluation of left-sided headache and blurred vision in the left eye. Patient reports from her prior stroke that she has visual deficits affecting the right nieto of both eyes. This evening she bent over and then stood back up and felt a pressure sensation in her head and noticed a little bit of blurriness in her left eye on the left field.She does not take a blood thinner. She denies head trauma. Her symptoms started approximately 1800 p.m. Patient reports history of an intracranial hemorrhage in 2019. She was initially seen at [facility] and then transferred to [facility]. Per son and mother they are unsure of the cause of this bleed. Review of Systems Constitutional: denies: Fever Cardiac: denies: Chest pain / pressure Respiratory: denies: Dyspnea GI: denies: Abdominal Pain Musculoskeletal: denies: Neck pain, Back pain Neurologic: reports: Headache PD PAST MEDICAL HISTORY - Past Medical History Cardiovascular: Hypertension, High cholesterol Respiratory: None Endocrine/Autoimmune: Type 2 diabetes GI: None : None HEENT: None Psych: None Musculoskeletal: Osteoarthritis Derm: None - Past Surgical History Past Surgical History: Yes Ortho: Carpal Tunnel surgery - Present Medications Home Medications: Ambulatory Orders Medication Instructions Recorded Confirmed Empagliflozin [Jardiance] 10 mg PO DAILY 04/17/18 04/17/18 Losartan [Cozaar] 25 mg PO DAILY 04/17/18 04/17/18 Pravastatin [Pravachol] 20 mg PO DAILY 04/17/18 04/17/18 Silver Sulfadiazine [Ssd] 20 gm TP DAILY 04/17/18 04/17/18 Sitagliptin Phos/Metformin HCl 1 each PO DAILY 04/17/18 04/17/18 [Janumet Xr 100-1,000 mg Tablet] - Allergies Allergies/Adverse Reactions: Allergies Allergy/AdvReac Type Severity Reaction Status Date / Time No Known Drug Allergies Allergy Verified 10/17/17 11:32 - Social History Does the pt smoke?: No Smoking Status: Never smoker PD ED PE NORMAL - General General: Alert and oriented X 3, No acute distress, Well developed/nourished - HEENT HEENT: Atraumatic, PERRL, EOMI, Moist mucous membranes, Pharynx benign - Neck Neck: Supple, no meningeal sign - Cardiac Cardiac: RRR - Respiratory Respiratory: No respiratory distress, Clear bilaterally - Abdomen Abdomen: Soft, Non tender, Non distended - Derm Derm: Warm and dry - Extremities Extremities: No deformity - Neuro Neuro: Alert and oriented X 3, No motor deficit, No sensory deficit, Normal speech. 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; reports slight blurriness to temporal half of Left eye; normal to nasal half of right eye; otherwise pin inserter intact) Eye Opening: Spontaneous Motor: Obeys Commands Verbal: Oriented GCS Score: 15 PD ED PE EXPANDED - Eyes Eyes: Normal eyelids, Nl conjunctiva/sclera, Normal corneas, Other (Normal IOP on Left ) Results - Vitals Vitals: Vital Signs - 24 hr 07/02/22 07/02/22 07/02/22 18:48 20:00 22:00 Temperature 35.6 C L Heart Rate 74 64 70 Respiratory 17 16 17 Rate Blood Pressure 151/83 H 130/71 131/65 H O2 Saturation 97 97 96 07/03/22 07/03/22 00:00 00:28 Temperature 36.0 C L Heart Rate 61 61 Respiratory 15 15 Rate Blood Pressure 97/68 97/68 O2 Saturation 97 97 Oxygen O2 Source Room air - EKG (time done) 1951 EKG releavant findings:: EKG personally interpreted by author of this note. Relevant findings are: Rate 60, normal sinus rhythm, no STEMI, QTc 436 Rate: Rate (enter#) (60) Rhythm: NSR Intervals: No: Prolonged QT Ischemia: No: ST elevation c/w ischemia - Labs Labs: Laboratory Tests 07/02/22 07/02/22 07/02/22 19:52 19:52 20:30 WBC 9.5 RBC 5.03 Hgb 15.2 Hct 46.9 MCV 93.2 MCH 30.2 MCHC 32.4 RDW 13.0 Plt Count 216 MPV 10.0 Neut # (Auto) 5.0 Lymph # (Auto) 3.6 H [place] # (Auto) 0.6 Eos # (Auto) 0.1 Baso # (Auto) 0.0 Absolute Nucleated RBC 0.00 Nucleated RBC % 0.0 PT 9.7 L INR 0.9 Sodium 141 Potassium 3.8 Chloride 105 Carbon Dioxide 27 Anion Gap 9.0 BUN 15 Creatinine 0.7 Estimated GFR (MDRD) 81 L Glucose 108 H Calcium 9.2 Magnesium 1.9 Total Bilirubin 0.5 AST 24 ALT 21 Alkaline Phosphatase 81 Total Protein 7.8 Albumin 4.5 Globulin 3.3 Albumin/Globulin Ratio 1.4 PD Medical Decision Making - ED course Complexity details: reviewed results, re-evaluated patient, d/w patient ED course: Patient presenting for evaluation of left-sided headache and new visual disturbance.She has baseline vision issues from prior intracranial hemorrhage.Her NIH is 0But given her history a head CT was obtained.I reviewed these images and there is a high density in the left occipital lobe. Radiology could not determine whether this was a calcification versus hemorrhage. He recommended a repeat scan in 3 hours.In the meanwhile, EKG, labs and patient was given Medications for her headache including IV Tylenol, Reglan and Benadryl along with IV fluids. Labs were reviewed including CBC, coags, chemistry without any significant findings. She felt much better and stated that her headache was gone and her vision had also gone back to its baseline. She has no signs of increased intraocular pressure. Her EKG demonstrates a normal rhythm. A repeat CT scan was obtained with no changes and therefore radiology feels that this high density is likely a dystrophic calcification.Patient symptoms resolved here with treatment of her headache. Therefore suspect an ocular migraine. However I did financial counselor the patient on need for close follow-up with PCP and her missile inspector. She is also advised on strict return precautions. Son was at the bedside throughout the ED encounter and also agreeable with plan. 2114 - Patient doing better. States her vision is back to her baseline and she no longer has any head pressure. Departure - Departure Disposition: 01 Home, Self Care Clinical Impression: Ocular migraine Condition: Stable Instructions: ED Headache Migraine Follow-Up: William Cason MD [Provider Admit Priv/Credential] - Comments: I believe your symptoms tonight are related to an ocular migraine. However I would recommend close follow-up with your primary care doctor as well as with an missile inspector. There was an irregularity on your initial CT scan of the brain. The radiologist was initially unsure whether this was blood or calcification. We repeated the scan after Several hours and it appears the same which makes the radiologist thinks that this is just calcification and not blood. Please return to the emergency department if your symptoms recur or you develop any new symptoms Such as weakness on one side of your body. Discharge Date/Time: 07/03/22 00:31
[2022-07-02 19:57] LABS: BASOPHILS % (AUTO) 0.3 %; EOSINOPHILS # (AUTO) 0.1 10^3/uL (0.0-0.7); EOSINOPHILS % (AUTO) 1.1 %; HCT - HEMATOCRIT 46.9 % (37.0-47.0); HGB - HEMOGLOBIN 15.2 g/dL (12.0-16.0); LYMPHOCYTES # (AUTO) 3.6 10^3/uL (1.5-3.5); LYMPHOCYTES % (AUTO) 38.2 %; MEAN CORPUSCULAR HEMOGLOBIN 30.2 pg (27.0-31.0); MEAN CORPUSCULAR HGB CONC 32.4 g/dL (32.0-36.0); MEAN CORPUSCULAR VOLUME 93.2 fL (81.0-99.0); MONOCYTES # (AUTO) 0.6 10^3/uL (0.0-1.0); MONOCYTES % (AUTO) 6.8 %; NEUTROPHILS % (AUTO) 53.2 %; PLT - PLATELET COUNT 216 10^3/uL (130-450); RED BLOOD COUNT 5.03 10^6/uL (4.20-5.40); WHITE BLOOD COUNT 9.5 x10^3/uL (4.8-10.8)
[2022-07-02 20:09] LABS: ALBUMIN 4.5 g/dL (3.2-5.5); ALBUMIN/GLOBULIN RATIO 1.4 (1.0-2.2); BILIRUBIN,TOTAL 0.5 mg/dL (0.2-1.0); CALCIUM 9.2 mg/dL (8.5-10.3); CREATININE 0.7 mg/dL (0.4-1.0); MAGNESIUM 1.9 mg/dL (1.7-2.8); POTASSIUM 3.8 mmol/L (3.5-5.0); TOTAL PROTEIN 7.8 g/dL (6.7-8.2)
[2022-07-02] MEDS ORDERED: diphenhydrAMINE INJ 50 MG/ML VIAL IVP STA (20:10)
[2022-07-02] MEDS ORDERED: ACETAMINOPHEN 1,000 MG/100 ML 1,000 MG/100 ML BAG IV ONE (20:10)
[2022-07-02] MEDS ORDERED: METOCLOPRAMIDE 10 MG/2 ML VIAL IVP STA (20:10)
--- NOTE | 2022-07-02 20:13 | CT Report ---
PROCEDURE: HEAD WO INDICATIONS: headache/blurred vision 1.5hrs TECHNIQUE: Noncontrast 4.5 mm thick angled axial sections acquired from the foramen magnum to the vertex. For r adiation dose reduction, the following was used: automated exposure control, adjustment of mA and/or kV according to patient size. COMPARISON: CT head 04/17/2018. FINDINGS: Image quality: Excellent. CSF spaces: Basal cisterns are patent. No extra-axial fluid collections. Ventricles are normal in overall size. There is ex vacuo dilatation in the posterior horn of the left lateral ventricle second corie encephalomalacia. Brain: There is a large region of encephalomalacia involving the left temporal and occipital lobes se condary to sequelae of a prior hemorrhagic infarct. There is indistinct high density along the medial margin of this region in the occipital lobe which may represent dystrophic calcification but intrapa renchymal hemorrhage cannot be excluded. Elsewhere, there are a few scattered areas of white matter h ypodensity consistent with mild chronic small vessel ischemic changes. Skull and face: Calvarium and visualized facial bones are intact, without suspicious lesions. Sinuses: Visualized sinuses and mastoids are clear. IMPRESSION: 1. Indistinct high density in the left occipital lobe along the medial margin of the area of encephal omalacia. The findings are suggestive of dystrophic calcification but intraductal hemorrhage cannot b e excluded. Recommend a short-term repeat study in 3 hours for further evaluation. Findings discussed with Dr. Butt on 07/02/2022 at 8:04 PM. Reviewed by: Lang Quinonez MD on 07/02/2022 8:12 PM PDT Approved by: Lang Quinonez MD on 07/02/2022 8:12 PM PDT Station ID: [id number]
[2022-07-02 20:40] LABS: INR 0.9 (0.8-1.2); PT - PROTHROMBIN TIME 9.7 secs (9.9-12.6)
[2022-07-02] MEDS ORDERED: PROPARACAINE 0.5% OPHTH DROPS 15 ML LEFTEYE STA (23:15)
--- NOTE | 2022-07-02 23:50 | CT Report ---
PROCEDURE: HEAD WO INDICATIONS: abnormal CT; calcification vs hemorrhage TECHNIQUE: Noncontrast 4.5 mm thick angled axial sections acquired from the foramen magnum to the vertex. For r adiation dose reduction, the following was used: automated exposure control, adjustment of mA and/or kV according to patient size. COMPARISON: Previous head CT from 07/02/2022. CT head 04/17/2018. FINDINGS: Image quality: Excellent. CSF spaces: There is mild cerebral volume loss with prominence of the ventricles and sulci. Basal ci sterns are patent. Brain: A large area of encephalomalacia is redemonstrated within the left temporal and occipital lob es consistent with sequelae of prior hemorrhagic infarct. Indistinct cortical high density along the medial margin of this region appears unchanged compared to the prior study. The findings most likely represent dystrophic cortical calcification. There are subcortical and periventricular white matter h ypodensities consistent with mild chronic small vessel ischemic changes. Skull and face: Calvarium and visualized facial bones are intact, without suspicious lesions. Sinuses: Visualized sinuses demonstrate mucosal thickening within the right maxillary sinus. Mastoid air cells are clear. IMPRESSION: 1. Indistinct cortical high density along the medial margin of patient's area of encephalomalacia alexei ears unchanged and most likely represents dystrophic cortical calcification. 2. No definite acute intracranial abnormality. 3. Mild chronic white matter small vessel ischemic changes and cerebral volume loss. Reviewed by: Lang Quionnez MD on 07/02/2022 11:49 PM PDT Approved by: Lang Quinonez MD on 07/02/2022 11:49 PM PDT Station ID: [id number]
[2022-07-03 00:22] VITALS: BP 97/68
== END 2022-07-03 00:31 | disposition home or self-care (01) ==
LOC: ED 18:42
DX: G43.809 Other migraine, not intractable, without status migrainosus (principal)
CPT/HCPCS: 36415; 70450; 80053; 83735; 85025; 85610; 93005; 96365; 96375; 99284; J0131; J1200; J2765; J3490

== ENCOUNTER 2023-08-06 10:21 | Outpatient (CLI) | payer MEDICARE, OTHER ==
--- NOTE | 2023-08-07 08:45 | Mammography Report ---
BILATERAL DIGITAL SCREENING MAMMOGRAM 3D/2D: 08/06/2023 CLINICAL: Routine screening. Comparison is made to exams dated: 05/01/2022 mammogram, 04/11/2021 mammogram, 08/15/2018 ultrasound, ultrasound, 08/15/2018 mammogram, and 07/25/2018 mammogram - [facility]. There are scattered areas of fibroglandular density in both breasts (category b / 25%-50% glandular t issue). There is an oval asymmetry in the left breast at 6 o'clock middle depth. This is more prominent and increased in size. No other significant masses, calcifications, or other findings are seen in either breast. IMPRESSION: INCOMPLETE: NEEDS ADDITIONAL IMAGING EVALUATION The oval asymmetry in the left breast is indeterminate. Additional views with possible ultrasound ar e recommended. Based on the Tyrer Cuzick model (a risk assessment model) the patient's lifetime risk is 3.3% and her 10 year risk is 0.0%. According to the ACR, ACS, and NCCN guidelines, an annual breast MRI exam prabhakar g with mammogram is recommended if the patient's lifetime risk is 20% or greater. This exam was interpreted at Station ID: [id number]. NOTE: For mammograms, a report in lay terms will be sent to the patient. Approximately 15% of breast malignancies will not be visualized mammographically. In the management of a palpable breast mass, a negative mammogram must not discourage biopsy of a clinically suspicious lesion. Electronically Signed By: Heather reinoso/penrad:08/06/2023 15:37:22 ACR BI-RADS Category 0: Incomplete 3340F PARENCHYMAL PATTERN: (A) - The breast(s) demonstrate(s) scattered fibroglandular densities. BI-RADS CATEGORY: (0) - 0 Mammo and [place] [id number] Immediate follow-up LATERALITY: (B)
== END 2023-08-06 10:22 | disposition home or self-care (01) ==
LOC: DI.N 10:21
PROVIDERS: ATTEND Family Medicine
DX: Z12.31 Encounter for screening mammogram for malignant neoplasm of breast (principal); R92.8 Other abnormal and inconclusive findings on diagnostic imaging of breast; R92.323 Mammographic fibroglandular density, bilateral breasts

== ENCOUNTER 2023-09-13 10:46 | Outpatient (CLI) | payer MEDICARE, OTHER ==
--- NOTE | 2023-09-14 10:57 | Mammography Report ---
UNILATERAL LEFT DIGITAL DIAGNOSTIC MAMMOGRAM 3D/2D WITH SPOT COMPRESSION: 09/13/2023 CLINICAL: Patient returns today to evaluate a focal asymmetry in the left breast. Comparison is made to exams dated: 08/06/2023 mammogram, 05/01/2022 mammogram, 04/11/2021 mammogram, 07/31 mammogram, and 07/25/2018 mammogram - [facility]. There are scattered areas of fibroglandular density in the left breast (category b / 25%-50% glandula r tissue). There is an oval focal asymmetry in the left breast at 6 o'clock middle depth. This is more prominen t. No other significant masses or calcifications are seen in the breast. IMPRESSION: INCOMPLETE: NEEDS ADDITIONAL IMAGING EVALUATION The oval focal asymmetry in the left breast is indeterminate. A targeted ultrasound is recommended and will immediately follow. Based on the Tyrer Cuzick model (a risk assessment model) the patient's lifetime risk is 3.3% and her 10 year risk is 0.0%. According to the ACR, ACS, and NCCN guidelines, an annual breast MRI exam prabhakar g with mammogram is recommended if the patient's lifetime risk is 20% or greater. This exam was interpreted at Station ID: [id number]. NOTE: For mammograms, a report in lay terms will be sent to the patient. Approximately 15% of breast malignancies will not be visualized mammographically. In the management of a palpable breast mass, a negative mammogram must not discourage biopsy of a clinically suspicious lesion. Electronically Signed By: Hadley Delatorre M.D. slc/:09/13/2023 13:07:47 ACR BI-RADS Category 0: Incomplete 3340F PARENCHYMAL PATTERN: (A) - The breast(s) demonstrate(s) scattered fibroglandular densities. BI-RADS CATEGORY: (0) - 0 Ultrasound [id number] Immediate follow-up LATERALITY: (B)
--- NOTE | 2023-09-14 10:58 | Ultrasound Report ---
LIMITED ULTRASOUND OF LEFT BREAST: 09/13/2023 CLINICAL: Patient returns today to evaluate a focal asymmetry in the left breast. Comparison is made to exams dated: 09/13/2023 mammogram, 08/06/2023 mammogram, 05/01/2022 mammogram, 04/02 mammogram, 08/15/2018 ultrasound, and 08/15/2018 ultrasound - [facility]. Color flow and real-time ultrasound of the left breast 5-6 o'clock, and retroareolar regions were per formed. Rivers scale images of the real-time examination were reviewed. There is a benign 0.8 cm x 0.6 cm x 0.2 cm oval cyst in the left breast at 5 o'clock middle depth 5 c m from the nipple. This oval cyst is anechoic. This correlates with mammography findings. Color fl ow imaging demonstrates that there is no vascularity present. IMPRESSION: BENIGN There is no sonographic evidence of malignancy. The 0.8 cm oval cyst in the left breast is benign. A 1 year screening mammogram is recommended. Exam findings were conveyed to the patient. This exam was interpreted at Station ID: [id number]. Electronically Signed By: Hadley Delatorre M.D. slc/:09/13/2023 13:10:21 Ultrasound BI-RADS: 2 Benign BI-RADS CATEGORY: (2) - 2 RECOMMENDATION: (ANNUAL) - Recommend routine annual screening mammography. [id number] 1 year screening LATERALITY: (B)
== END 2023-09-13 10:47 | disposition home or self-care (01) ==
LOC: DI 10:46
PROVIDERS: ATTEND Family Medicine
DX: N60.02 Solitary cyst of left breast (principal); R92.322 Mammographic fibroglandular density, left breast

== ENCOUNTER 2023-11-21 15:38 | Emergency (ER) | payer MEDICARE, OTHER ==
--- NOTE | 2023-11-21 15:53 | ED Physician Documentation ---
PD HPI FOCAL NEURO - Stated complaint Stated Complaint: VISION LOSS - Chief complaint Chief Complaint: General - History obtained from History obtained from: Patient - Additional information Additional information: 78-year-old woman who had a hemorrhagic stroke in 2019. Was sent to [facility] [place]. She tells me she had aneurysms but unclear if those were addressed. She did not have a craniotomy though. Per the chart she has had intermittent troubles with vision since, for example in July of last year was here with some left eye issues and dizziness. She does not recall having any left eye issues at that time when I asked her if today's episode is similar. Since about 10 AM she has had difficulty with vision in both eyes but the left definitely worse than the right with blurry vision especially in the inferior visual field. Denies dizziness or headache, does have mild left retro-orbital pain. PD PAST MEDICAL HISTORY - Past Medical History Past Medical History: Yes Cardiovascular: Hypertension, High cholesterol Respiratory: None Neuro: CVA Endocrine/Autoimmune: Type 2 diabetes GI: None REHANGER: None : None HEENT: None Psych: None Musculoskeletal: Osteoarthritis Derm: None - Past Surgical History Past Surgical History: Yes Ortho: Carpal Tunnel surgery - Present Medications Home Medications: Ambulatory Orders Medication Instructions Recorded Confirmed Losartan [Cozaar] 25 mg PO DAILY 04/17/18 11/21/23 Pravastatin [Pravachol] 20 mg PO DAILY 04/17/18 11/21/23 Silver Sulfadiazine [Ssd] 20 gm TP DAILY 04/17/18 11/21/23 Sitagliptin Phos/Metformin HCl 1 each PO DAILY 04/17/18 11/21/23 [Janumet Xr 100-1,000 mg Tablet] Aspirin Chewable [[place] 81 mg PO DAILY 11/21/23 11/21/23 Aspirin] - Allergies Allergies/Adverse Reactions: Allergies Allergy/AdvReac Type Severity Reaction Status Date / Time No Known Drug Allergies Allergy Verified 11/21/23 15:47 - Social History Does the pt smoke?: No Smoking Status: Never smoker Does the pt drink ETOH?: No Does the pt have substance abuse?: No - Immunizations Immunizations are current?: Yes - POLST Patient has POLST: No PD ED PE NORMAL - Vitals Vital signs reviewed: Yes - General General: Alert and oriented X 3, No acute distress - HEENT HEENT: PERRL, EOMI - Neck Neck: Supple, no meningeal sign, No bony TTP - Cardiac Cardiac: RRR, No murmur - Respiratory Respiratory: No respiratory distress, Clear bilaterally - Abdomen Abdomen: Non tender - Neuro Neuro: Alert and oriented X 3 Eye Opening: Spontaneous Motor: Obeys Commands Verbal: Oriented GCS Score: 15 NIHSS - Time Time: 15:50 - Level of Consciousness Level of consciousness: (0) Alert, Keenly responsive LOC Questions: (0) Answers both Q's correct LOC Commands: (0) Performs both correctly - Gaze Best Gaze: (0) Normal - Visual Visual: (2) Complete Hemianopia (Visual field testing basically showing that she is decent central vision in the left, but has inconsistent and usually wrong answers in all visual nieto on the left, but also in the right lateral inferior field to the right eye.) - Facial Palsy Facial Palsy: (0) Normal, symmetrical movement - Motor Arms (both separate) Motor Arm (right): (0) No drift Motor Arm (left): (0) No drift - Motor Legs (both separate) Motor Leg (right): (0) No drift Motor Leg (left): (0) No drift - Limb Ataxia Limb Ataxia: (0) Absent - Sensory Sensory: (0) Normal - Best Language Best Language: (0) No aphasia - Dysarthria Dysarthria: (0) Normal - Extinction and Inattention (formally neg Extinction and inattention: (0) No abnormality - Total Score/Results Total Score/Result: 2 Results - Vitals Vitals: Vital Signs - 24 hr 11/21/23 11/21/23 11/21/23 15:40 16:03 17:31 Temperature 36.3 C L Heart Rate 57 L 58 L 58 L Respiratory 16 15 15 Rate Blood Pressure 126/66 136/82 H 118/62 O2 Saturation 98 97 94 Oxygen O2 Source Room air - Labs Labs: Laboratory Tests 11/21/23 11/21/23 15:52 16:10 WBC 6.1 RBC 5.09 Hgb 15.2 Hct 46.8 MCV 91.9 MCH 29.9 MCHC 32.5 RDW 12.8 Plt Count 211 MPV 9.9 Neut # (Auto) 3.1 Lymph # (Auto) 2.5 [place] # (Auto) 0.4 Eos # (Auto) 0.1 Baso # (Auto) 0.0 Absolute Nucleated RBC 0.00 Nucleated RBC % 0.0 Sodium 139 Potassium 3.9 Chloride 105 Carbon Dioxide 27 Anion Gap 7.0 BUN 15 Creatinine 0.7 Estimated GFR (MDRD) 81 L Glucose 136 H Calcium 9.3 Total Bilirubin 0.4 AST 17 ALT 17 Alkaline Phosphatase 80 Total Protein 7.5 Albumin 4.2 Globulin 3.3 Albumin/Globulin Ratio 1.3 - Rads (name of study) CT/CTA of the head showing left cerebral posterior infarct and dystrophic calcifications without arterial abnormality Relevant Findings:: Final report received, EMP independent interpretation of test MRI of the brain with remote left infarct and maxillary sinus disease Relevant Findings:: Final report received, EMP independent interpretation of test PD Medical Decision Making - ED course ED course: 78-year-old woman with history of hemorrhagic stroke presents with new visual symptoms. In the chart she may have had something similar in May of last year although she does not recall this specifically. Other than that her exam is relatively normal with normal vital signs subsequently had unremarkable CBC and CMP. CT/CT angiography of the head were negative for acute findings and she was sent over for an MRI. Given the location of her prior stroke, it would not be unexpected for her to have some poststroke visual symptoms. As to why these are worse today than any other day I am not sure. There is no seizure activity. tPA was considered, but she arrives outside of the tPA window and with a history of hemorrhagic stroke this would be a further contraindication. Subsequently brain MRI did not show any new or acute findings other than some right maxillary sinusitis and the old stroke. She did have improvement in her symptoms without specific intervention while here. I think outpatient follow-up with ophthalmology would be appropriate and she is given the name and number of Dr. Cason in [place]. On reevaluation with results of MRI just prior to discharge her vision issues had completely resolved actually. Departure - Departure Disposition: 01 Home, Self Care Clinical Impression: Vision changes, History of stroke Condition: Stable Record reviewed to determine appropriate education?: Yes Follow-Up: William Cason MD [Provider Admit Priv/Credential] - Comments: You are seen today for some new vision changes in the setting of a prior stroke. The location of your prior stroke would be expected to affect your vision given the location in the brain. CT and CT angiography of the head were negative for new or acute findings or aneurysms. And the MRI of your brain did not show any evidence of an acute stroke, just the old one. He did have some fluid in your right maxillary sinus which is not related to the current issue. I would recommend you follow-up with an kelly machine operator [facility] for further evaluation and treatment. 1 is listed on this form whom you can call tomorrow. Forms: PCP List
[2023-11-21] MEDS ORDERED: iohexoL-300 100 ML VIAL ONE (15:59)
[2023-11-21 16:20] LABS: BASOPHILS % (AUTO) 0.3 %; EOSINOPHILS # (AUTO) 0.1 10^3/uL (0.0-0.7); EOSINOPHILS % (AUTO) 1.3 %; HCT - HEMATOCRIT 46.8 % (37.0-47.0); HGB - HEMOGLOBIN 15.2 g/dL (12.0-16.0); LYMPHOCYTES # (AUTO) 2.5 10^3/uL (1.5-3.5); MEAN CORPUSCULAR HEMOGLOBIN 29.9 pg (27.0-31.0); MEAN CORPUSCULAR HGB CONC 32.5 g/dL (32.0-36.0); MEAN CORPUSCULAR VOLUME 91.9 fL (81.0-99.0); MEAN PLATELET VOLUME 9.9 fL (7.9-10.8); MONOCYTES # (AUTO) 0.4 10^3/uL (0.0-1.0); NEUTROPHILS # (AUTO) 3.1 10^3/uL (1.5-6.6); NEUTROPHILS % (AUTO) 51.1 %; PLT - PLATELET COUNT 211 10^3/uL (130-450); RED BLOOD COUNT 5.09 10^6/uL (4.20-5.40); RED CELL DISTRIBUTION WIDTH 12.8 % (12.0-15.0); WHITE BLOOD COUNT 6.1 x10^3/uL (4.8-10.8)
[2023-11-21 16:47] LABS: ALBUMIN 4.2 g/dL (3.2-5.5); ALBUMIN/GLOBULIN RATIO 1.3 (1.0-2.2); BILIRUBIN,TOTAL 0.4 mg/dL (0.2-1.0); CALCIUM 9.3 mg/dL (8.5-10.3); CREATININE 0.7 mg/dL (0.6-1.3); POTASSIUM 3.9 mmol/L (3.5-4.5); TOTAL PROTEIN 7.5 g/dL (6.4-8.9)
[2023-11-21] MEDS: iohexoL-300 100 ML VIAL IVP ONE (17:10)
--- NOTE | 2023-11-21 17:39 | CT Report ---
PROCEDURE: Head WO INDICATIONS: CVA sx TECHNIQUE: Noncontrast 4.5 mm thick angled axial sections acquired from the foramen magnum to the vertex. For r adiation dose reduction, the following was used: automated exposure control, adjustment of mA and/or kV according to patient size. COMPARISON: 07/02/2022. Correlation is made with the accompanying imaging. FINDINGS: Image quality: Excellent. CSF spaces: Basal cisterns are patent. No extra-axial fluid collections. Ventricles are normal in size and shape. Brain: There is a remote, completed infarct seen involving the posterior aspect of the left cerebral hemisphere. There is again seen high density along the medial posterior aspect of the encephalomalac ia, which is unchanged compared to the prior examination. Similar-appearing appearing calcification c an be seen along the posterior medial aspect of the right cerebral hemisphere. No midline shift. No intracranial masses or hemorrhage. Rivers-white matter interface is normal. Age-appropriate brain par enchymal volume loss and chronic small vessel ischemic change can be seen. Skull and face: Calvarium and visualized facial bones are intact, without suspicious lesions. Sinuses: There is focal moderate mucosal thickening involving the right maxillary sinus. Minimal muco damon thickening can be seen elsewhere within the paranasal sinuses. No significant abnormal fluid can be seen within the mastoid air cells. IMPRESSION: No pilar acute abnormality is seen. Remote, completed infarct involving the posterior aspect of the left cerebral hemisphere. Abnormal high density can be seen involving the posterior medial aspects of both cerebral hemispheres , left worse than right. This is mildly progressed compared to the prior examination, and may represe nt dystrophic calcification. Reviewed by: Kadeem Valdivia MD on 11/21/2023 4:38 PM [place] Approved by: Kadeem Valdivia MD on 11/21/2023 4:38 PM AKDT Station ID: [id number]
--- NOTE | 2023-11-21 17:41 | CT Report ---
PROCEDURE: Angio Head/Neck INDICATIONS: CVA sx TECHNIQUE: After the administration of intravenous contrast, 1 mm thick sections acquired from the aortic arch t hrough the [place]. 3-dimensional iceqioj-qizqjvvhm-puzuuzprpf (MIP) and/or volume renderin g reformats were acquired of the central intracranial vasculature and neck separately. For radiation dose reduction, the following was used: automated exposure control, adjustment of mA and/or kV acco rding to patient size. CONTRAST: 80ml [id number] COMPARISON: Correlation is made with the accompanying imaging. FINDINGS: Image quality: Limited by bolus timing, with venous contamination. There is streak artifact seen thr ough the level of the shoulders. HEAD CT: CSF Spaces: Basal cisterns are patent. No extra-axial fluid collections. Ventricles are normal in size and shape. Brain:: Remote left posterior cerebral hemisphere infarct seen. Skull and face: Calvarium and visualized facial bones appear intact, without suspicious lesions. Sinuses: Visualized sinuses and mastoids are clear. HEAD CT ANGIOGRAPHY: Anterior circulation: Intracranial internal carotid arteries are normal in size and flow. The flow within the paired anterior cerebral arteries is normal and symmetric. The flow within the middle cer ebral arteries is normal and symmetric. The anterior communicating artery is seen. No aneurysms are seen. Posterior circulation: Bilateral type origins of the posterior cerebral arteries can be seen, with an associated hypoplastic basilar artery. The distal vertebral arteries are small in caliber, wi thout a focal abnormality. The flow within the posterior cerebral arteries is normal and symmetric. No aneurysms are seen. No aneurysms are seen within the posterior circulation. NECK CT ANGIOGRAPHY: Carotid system: The great vessels demonstrate a conventional anatomy as they arise from the aortic a [facility]. The origins of the common carotid arteries appear patent. The common carotid arteries demonstr ate normal caliber and courses. The bifurcation regions are both widely patent. The internal caroti d arteries demonstrate normal calibers and courses. Posterior circulation: The origins of the vertebral arteries both appear widely patent. The more begum perior extracranial portions of both vertebral arteries also demonstrate normal courses and calibers. The left vertebral artery is dominant to the right. Soft tissues: Visualized neck soft tissues d emonstrate no suspicious abnormalities. Bones: No suspicious bony lesions. Visualized cervical spine appears normally aligned. IMPRESSION: No significant intracranial arterial abnormality is seen. No significant abnormality is seen within the arteries of the neck. Additional findings: [place] developmental anomalies The estimate of stenosis included in the report of the imaging study was calculated using the NASCET method Reviewed by: Kadeem Valdivia MD on 11/21/2023 4:40 PM [place] Approved by: Kadeem Valdivia MD on 11/21/2023 4:40 PM [place] Station ID: [id number]
--- NOTE | 2023-11-21 18:44 | MRI Report ---
PROCEDURE: Brain WO INDICATIONS: CVA Sx TECHNIQUE: Noncontrast axial T1 spin echo, axial T2 fast spin echo, sagittal and axial FLAIR, coronal T2 fast sp in echo, axial gradient echo, axial diffusion and ADC through the brain. COMPARISON: 06/27/2018. Correlation is made with the accompanying imaging. FINDINGS: Image quality: Excellent. CSF Spaces: Basal cisterns are patent. No extra-axial fluid collections. Ventricles are normal in size and shape. Brain: No intracranial masses . Rivers/white matter interface is normal. Brainstem appears normal. Diffusion-weighted images demonstrate no acute ischemic insult. There is a remote, completed infarcti on involving the posterior aspect of the left cerebral hemisphere, with volume loss and surrounding e ncephalomalacia. Hemosiderin deposition can be seen along the margins of this remote infarction. Norm al intravascular flow voids are present. Age-appropriate brain parenchymal volume loss and chronic small vessel ischemic change can be seen. Skull and face: Calvarium has normal marrow signal. Orbits appear normal. Incidental note is made of bilateral lens replacements. Sinuses: There is moderate mucosal thickening seen within the right maxillary sinus, with mild mucosa l thickening seen elsewhere within the paranasal sinuses. No significant abnormal fluid can be seen w ithin the mastoid air cells. IMPRESSION: No findings of acute or subacute infarction are seen. Remote, completed infarct seen posteriorly on the left, with volume loss and encephalomalacia. Hemosi gisel deposition can also be seen, which is consistent with prior hemorrhage of the infarct. Additional findings: Focal right maxillary sinus disease Reviewed by: Kadeem Valdivia MD on 11/21/2023 5:43 PM [place] Approved by: Kadeem Valdivia MD on 11/21/2023 5:43 PM AKDT Station ID: [id number]
[2023-11-21 19:04] VITALS: BP 130/68; O2SAT 95
== END 2023-11-21 19:04 | disposition home or self-care (01) ==
LOC: ED 15:38
DX: H53.47 Heteronymous bilateral field defects (principal); I10 Essential (primary) hypertension; E78.00 Pure hypercholesterolemia, unspecified; E11.9 Type 2 diabetes mellitus without complications; Z86.73 Personal history of transient ischemic attack (TIA), and cerebral infarction without residual deficits; Z79.899 Other long term (current) drug therapy; Z79.84 Long term (current) use of oral hypoglycemic drugs; Z79.82 Long term (current) use of aspirin
CPT/HCPCS: 36415; 70450; 70496; 70498; 70551; 80053; 85025; 99283; 99284; Q9967